=== PATIENT | female | born 1980 | race Native Hawaiian/Other Pacific Islander ===

== ENCOUNTER 2018-06-03 10:24 | Emergency (ER) | payer OTHER ==
--- NOTE | 2018-06-03 11:22 | XR ---
EXAMINATION TYPE: XR foot complete LT DATE OF EXAM: 06/03/2018 COMPARISON: None HISTORY: Pain left foot injury TECHNIQUE: Left foot is examined in 3 views FINDINGS: No acute fractures are evident. Soft tissues appear normal. Follow-up exam can be performed 7-10 days from acute trauma for continued pain. IMPRESSION: 1. No acute osseous abnormality left foot.
--- NOTE | 2018-06-03 11:32 | ED ---
General Adult HPI - General Chief complaint: Extremity Problem,Nontraumatic Stated complaint: foot swelling/sore Time Seen by Provider: 06/03/18 10:41 Source: patient, RN notes reviewed, old records reviewed Mode of arrival: ambulatory Limitations: no limitations - History of Present Illness Initial comments: 38-year-old female with no chronic medical problems presents with one-week history of left foot pain. Pain is on the top of her foot between her first and second digit. Denies injury. Denies fever or chills. She states she has noticed some soft tissue swelling in the area. No reported injury or overuse. Denies ankle pain. Denies calf pain or swelling. No other complaints, no chest pain, dyspnea, abdominal pain. - Related Data Home Medications Medication Instructions Recorded Confirmed No Known Home Medications 06/03/18 06/03/18 Allergies Allergy/AdvReac Type Severity Reaction Status Date / Time No Known Allergies Allergy Verified 06/03/18 10:54 Review of Systems ROS Statement: Those systems with pertinent positive or pertinent negative responses have been documented in the HPI. ROS Other: All systems not noted in ROS Statement are negative. Past Medical History Past Medical History: No Reported History Additional Past Medical History / Comment(s): headaches History of Any Multi-Drug Resistant Organisms: None Reported Past Surgical History: No Surgical Hx Reported Past Psychological History: Anxiety, Bipolar, Depression Smoking Status: Current every day smoker Past Alcohol Use History: Occasional Past Drug Use History: None Reported General Exam Limitations: no limitations General appearance: alert, in no apparent distress Head exam: Present: atraumatic, normocephalic Eye exam: Present: normal appearance, PERRL, EOMI ENT exam: Present: normal exam, normal oropharynx Neck exam: Present: normal inspection. Absent: tenderness, meningismus Respiratory exam: Present: normal lung sounds bilaterally, respiratory distress Cardiovascular Exam: Present: regular rate, normal rhythm GI/Abdominal exam: Present: soft. Absent: distended, tenderness Extremities exam: Present: other (Left foot, 2+ DP and PT pulses. Normal cap refill. Normal color. Mild soft tissue swelling between the first and second metatarsals. No ecchymosis. No erythema. No induration. There is some tenderness associated with this area) Course Vital Signs 06/03/18 10:36 Temperature 98.4 F Pulse Rate 107 H Respiratory 20 Rate Blood Pressure 122/68 O2 Sat by Pulse 99 Oximetry Medical Decision Making - Medical Decision Making 38-year-old female with left hip pain. Mild swelling on exam. No concern for infection at this time. Patient does receive x-ray of the emergency department which is negative for any bony abnormality. She will continue to elevate and ice the foot. Take Motrin for pain. She will be given orthopedic follow-up as needed. Disposition Clinical Impression: Foot pain, left Disposition: HOME SELF-CARE Condition: Fair Instructions: Foot Sprain (ED) Is patient prescribed a controlled substance at d/c from ED?: No Referrals: None,Stated [Primary Care Provider] - 1-2 days Aba Mckeon MD [STAFF PHYSICIAN] - 1-2 days Time of Disposition: 11:32
[2018-06-03 12:03] VITALS: BP 137/86; PULSE 90; RESP 18; TEMP 98.9
== END 2018-06-03 12:03 | disposition home or self-care (01) ==
LOC: EC 10:24
DX: M79.672 Pain in left foot (principal); M79.89 Other specified soft tissue disorders; F17.200 Nicotine dependence, unspecified, uncomplicated
CPT/HCPCS: 99284

== ENCOUNTER → 2018-09-27 | Outpatient (CLI) | payer OTHER ==
--- NOTE | 2018-09-27 13:53 | MR ---
EXAMINATION TYPE: MR brain wo con DATE OF EXAM: 09/27/2018 COMPARISON: 10/08/2015 MR brain HISTORY: Chronic headache / Vision changes TECHNIQUE: Multiplanar, multisequence images of the brain and brainstem is performed without intravenous contras t. FINDINGS: Diffusion weighted images demonstrate no evidence of a recent infarct or other diffusion ab normality. There is no extra-axial fluid collection. The ventricular system and cisternal spaces are normal in size and appearance. The brain volume is age appropriate. There are 5 foci of subcortical T2/FLAIR hyperintensity measuring up to 3 mm in the right occipital lobe and bilateral temporal lobe s. There is decreased intensity of the cervical spine vertebral bodies are most commonly relates to a nemia. Correlate with CBC. Midline structures demonstrate normal morphology. The craniocervical junction appears within normal limits. The dural venous sinuses appear patent. The visualized sinuses demonstrate a left mucosal re tention cyst or polyp within the maxillary sinus measuring 1.6 cm and partial opacification of the le ft sphenoid sinus, both findings unchanged from the prior. IMPRESSION: 1. 5 new foci of subcortical nonspecific white matter change measuring up to 3 mm. Sequela of migrain es or early microangiopathy are favored given distribution. Demyelinating disease is considered much less likely given the distribution. Orbits appear symmetric with no convincing evidence of increased intracranial pressure in this patient with visual changes. 2. Persistent 1.6 cm left maxillary sinus mucosal retention cyst or polyp. 3. Decreased intensity of the cervical spine bone marrow that could relate to anemia or other etiolog ies. Correlate with CBC.
== END | disposition home or self-care (01) ==
LOC: RADMRIMAIN 11:02
PROVIDERS: ATTEND Family Medicine
DX: R90.82 White matter disease, unspecified (principal)
CPT/HCPCS: 70551

== ENCOUNTER → 2019-06-28 | Outpatient (CLI) | payer BC ==
[2019-06-28 12:13] VITALS: BP 115/64; PULSE 79; RESP 16
--- NOTE | 2019-06-29 10:52 | P.PAINCN ---
History of Present Illness - Reason for Consult Consult date: 06/28/19 - History of Present Illness This is a 39 years old female with history of chronic and severe headaches started several years ago, and she reported that the intensity of the headaches increased over the last few months, and also patient reported that she had increased the frequency and increase the intensity of the headache, the headache intensity interfering with her quality of life she tried medication management and it failed, and she was evaluated by neurologist Dr. Johnson and she recommended occipital nerve block, patient reported that the headaches start from the base of the skull and radiated to the top of the head , she has some numbness and tingling in her left wrist only, she denies any motor or sensory deficit she denies any fever or night sweats and there is no change in the bowel movement or urination Past Medical History Past Medical History: No Reported History Additional Past Medical History / Comment(s): headaches History of Any Multi-Drug Resistant Organisms: None Reported Past Surgical History: No Surgical Hx Reported Additional Past Surgical History / Comment(s): [place] teeth extraction 6 years ago Past Anesthesia/Blood Transfusion Reactions: No Reported Reaction Past Psychological History: Anxiety, Bipolar, Depression Smoking Status: Former smoker Past Alcohol Use History: Occasional Past Drug Use History: None Reported, Marijuana Additional Drug Use History / Comment(s): occational marijuana use - Past Family History Mother Family Medical History: Diabetes Mellitus, Hypertension Medications and Allergies Home Medications Medication Instructions Recorded Confirmed Type Ibuprofen [Motrin] 2 tab PO BID PRN 06/28/19 06/28/19 History Allergies Allergy/AdvReac Type Severity Reaction Status Date / Time No Known Allergies Allergy Verified 06/28/19 11:57 Physical Exam Vitals: Vital Signs Pulse Resp BP Pulse Ox 06/28/19 12:00 79 16 115/64 97 REVIEW OF ORGAN SYSTEMS: CONSTITUTIONAL: No fevers or chills. No recent weight loss. EYES: denies troubles with vision. HEENT: No difficulties with hearing. No nosebleeds. No difficulty swallowing. RESPIRATORY: Denies any troubles with breathing or dyspnea on exertion. CARDIOVASCULAR: Denies any chest pain, palpitations, or recent heart attacks. GASTROINTESTINAL: Denies fatty food intolerance. Has change in bowel habits and gas bloat. GENITOURINARY: Denies any blood in urine. Has increased urinary frequency. NEUROLOGICAL: + numbness and tingling left hand. No seizure disorders or headaches. MUSCULOSKELETAL: Has back pain. SKIN:no skin cancer. No rash. PSYCHIATRIC: Denies current depression or suicidal thoughts. ENDOCRINE: Denies current thyroid disorders. Denies any blood sugar glucose intolerance. HEME/LYMPHATIC: Denies any lumps and bumps around the neck. History of deep venous thrombosis. ALLERGY/IMMUNOLOGY: No immunoglobulin therapy. No immune deficiencies. BREAST: Denies current breast lumps, pain or nipple discharge. Physical Examinations : Constitutiona : Cooperative , not in acute distress . HEENT : nech : supple , no Lymphadenopathy , normal thyroid size . : eyes no ptosis , no icterus, no photophobia . : ENT normal of hearing , normal oropharynx , no Thrush . Respiratory : Chest clear to auscultations Bilaterally , no wheezing , no Rhonchi . Cardiovascula : regular rate and rhythem , S1 , S2 , no S3 , no S4. Gastrointestina : abdomen soft no tenderness , bowel sounds , no organomegally . Genitourinary : Defferred . neurologic : Cranial nerve II to XII intact , no focal neurological deffecit . psychatric : alert , oriented X 3 , appropriate affect , intact judgment and insight . Lymphatic : no Lymphadenopathy . musculoskeltal : Cervical Spine motor stregnth in the deltoid and biceps, normal right side , normal Left side motor stregnth biceps and the wrist extensors normal right side ,normal left side . motor stregnth in the triceps muscle . normal Right side , normal Left side deep tendon reflexes= normal at the biceps , normal at Brachioradialis , normal at triceps. cervical facet loading test: Positive Bilaterally Tenderness over the occipital nerves bilaterally Lumber spine moter stegnth lower extremities ,thigh and legs 5/5 Right side , 5/5 Left side Results Comments: MRI of the brain reviewed Assessment and Plan Plan: Assessment and plan= occipital neuralgia. Cervical spondylosis Patient with a good candidate bilateral occipital nerve block x2 , if patient continued to have headaches after the occipital nerve block then we will order a CT/MRI of the cervical spine, to evaluate if there is any cervicogenic etiology causing a headache Time with Patient: Greater than 30 PQRS Measure Charge Sheet Measure #130: Documentation of Current Meds in Medical Chart: Patient's medications documented in chart Measure #226: Tobacco Use: Screen & Cessation Intervention: Pt not a tobacco user Measure #111: Pneumonia Vaccination: Pneumococcal vaccine NOT administered or previously given Measure #47: Advance Care Plan: Advance care planning discussed & documented, pt chose/unable to give Measure #412: Opioid Treatment Agreement: No documentation of signed opioid treatment agreement Measure #408: Opioid Therapy Follow-up Evaluation: Patient had NO f/u eval minimum every 3 months during opioid therapy Measure #317: Preventitive Care & Scrn High Bld Press & F/U: Normal blood pressure, f/u not required Measure #128: Body Mass Index (BMI) Screening & Follow-up: BMI documented ABOVE normal parameters - f/u documented Measure #131: Pain Assessment & Follow-up: Pain positive & plan documented, Follow-up scheduled Measure #431: Unhealthy Alcohol Use Preventative Care & Scrn: Patient not identified as an unhealthy alcohol user PQRS Narrative: Smoking Status Former smoker Blood Pressure 115/64 Pain Intensity [Head] 5 Scale Used Numeric (1 - 10) Hx Alcohol Use (MH) Yes: occ Home Medications: Ambulatory Orders Ibuprofen [Motrin] 2 tab PO BID PRN 06/28/19
== END | disposition home or self-care (01) ==
LOC: PNWHC3 11:40
PROVIDERS: ATTEND Specialist
DX: M47.812 Spondylosis without myelopathy or radiculopathy, cervical region (principal); M54.81 Occipital neuralgia; Z87.891 Personal history of nicotine dependence; Z79.1 Long term (current) use of non-steroidal anti-inflammatories (NSAID)
CPT/HCPCS: 99211

== ENCOUNTER → 2020-10-08 | Outpatient (CLI) | payer BC, OTHER ==
--- NOTE | 2020-10-08 16:18 | US ---
EXAMINATION TYPE: US pelvic complete DATE OF EXAM: 10/08/2020 COMPARISON: NONE CLINICAL HISTORY: N83.202 OVARIAN CYST. Left pelvic pain TECHNIQUE: . Transabdominal sonographic images of the pelvis were acquired. Date of LMP: 3 weeks ago EXAM MEASUREMENTS: Uterus: 8.4 x 3.8 x 5.5 cm Endometrial Stripe: 1.3 cm Right Ovary: 2.4 x 2.0 x 2.3 cm Left Ovary: 3.2 x 2.5 x 2.5 cm 1. Uterus: anteverted, heterogeneous 2. Endometrium: appears wnl 3. Right Ovary: multiple follicles. One of the largest is 1.3 cm follicle. 4. Left Ovary: 2.2 x 1.7 x 1.8cm mildly complex cystic structure. This may represent an evolving hem orrhagic cyst. A follow-up sonographic study of the pelvis could be obtained in 6 weeks. 5. Bilateral Adnexa: wnl 6. Posterior cul-de-sac: wnl IMPRESSION: 1. 2.2 cm mildly complex left ovarian cystic structure suggestive of an evolving hemorrhagic cyst but indeterminate. A follow-up sonographic study could be obtained in 6 weeks. 2. Right ovarian follicles. 3. The endometrial stripe is within normal limits for menstruating female.
--- NOTE | 2020-10-09 11:38 | MM ---
Reason for exam: clinical finding. Baseline mammogram. Physical Findings: Nurse did not find any significant physical abnormalities on exam. MG Diagnostic Mammo w CAD LAURI Bilateral CC and MLO view(s) were taken. The breast tissue is extremely dense which could obscure a lesion on mammography. These results were verbally communicated with the patient and result sheet given to the patient on 10/08/20. ASSESSMENT: Benign, BI-RAD 2 RECOMMENDATION: Routine screening mammogram of both breasts in 1 year. Manage on a clinical basis with regard to bilateral clear nipple discharge.
== END | disposition home or self-care (01) ==
LOC: RADMAMWWP 13:04
PROVIDERS: ATTEND Family Medicine
DX: N83.202 Unspecified ovarian cyst, left side (principal); N64.4 Mastodynia
CPT/HCPCS: 76856; 77066

== ENCOUNTER 2021-08-01 07:04 | Emergency (ER) | payer BC ==
--- NOTE | 2021-08-01 07:55 | ED ---
General Adult HPI - General Chief complaint: Upper Respiratory Infection Stated complaint: Weakness, SOB Time Seen by Provider: 08/01/21 07:45 Source: patient, RN notes reviewed, old records reviewed Mode of arrival: ambulatory Limitations: no limitations - History of Present Illness Initial comments: 41-year-old female, well-appearing, presents to the emergency room with complaints of cough, fatigue and body aches worsening over past couple days. She states that she took Mucinex DayQuil today with some relief. She continues to have a cough that is nonproductive. She is concerned for viral illness. She has not been vaccinated against coronavirus. -: days(s) (2) Radiation: non-radiation Severity scale (1-10): 3 Quality: aching Associated Symptoms: cough, fever/chills, malaise, shortness of breath Treatments Prior to Arrival: other (mucinex daytime) - Related Data Previous Rx's Medication Instructions Recorded Albuterol Sulfate [Albuterol 2 puff PO Q6H #8.5 gm 08/01/21 Sulfate Hfa] Allergies Allergy/AdvReac Type Severity Reaction Status Date / Time No Known Allergies Allergy Verified 08/01/21 08:17 Review of Systems ROS Statement: Those systems with pertinent positive or pertinent negative responses have been documented in the HPI. ROS Other: All systems not noted in ROS Statement are negative. Past Medical History Past Medical History: No Reported History Additional Past Medical History / Comment(s): headaches History of Any Multi-Drug Resistant Organisms: None Reported, MRSA Date of last positivie culture/infection: 01/2021 MDRO Source:: chin Past Surgical History: No Surgical Hx Reported Additional Past Surgical History / Comment(s): [place] teeth extraction 6 years ago Past Anesthesia/Blood Transfusion Reactions: No Reported Reaction Past Psychological History: Anxiety, Bipolar, Depression Smoking Status: Never smoker Past Alcohol Use History: Occasional Past Drug Use History: None Reported, Marijuana - Past Family History Mother Family Medical History: Diabetes Mellitus, Hypertension General Exam Limitations: no limitations General appearance: alert, in no apparent distress Head exam: Present: atraumatic, normal inspection Eye exam: Present: normal appearance ENT exam: Present: normal exam, normal oropharynx, mucous membranes moist Expanded Mouth exam: Present: tongue normal, tongue elevation. Absent: drooling, trismus, muffled voice Throat exam: normal inspection. negative: tonsillar erythema, tonsillomegaly, tonsillar exudate, R peritonsillar mass, L peritonsillar mass Neck exam: Present: normal inspection, full ROM. Absent: tenderness, meningismus, lymphadenopathy, thyromegaly Respiratory exam: Present: normal lung sounds bilaterally. Absent: respiratory distress, accessory muscle use Cardiovascular Exam: Present: regular rate, normal rhythm, normal heart sounds GI/Abdominal exam: Present: soft. Absent: distended, tenderness Extremities exam: Absent: pedal edema Back exam: Present: normal inspection. Absent: tenderness, CVA tenderness (R), CVA tenderness (L), rash noted Neurological exam: Present: alert, oriented X3 Psychiatric exam: Present: normal affect, normal mood Skin exam: Present: warm, dry, intact, normal color. Absent: cyanosis, diaphoretic, petechiae, pallor Course Vital Signs 08/01/21 08/01/21 08/01/21 07:24 07:50 09:50 Temperature 98.9 F 98.7 F Pulse Rate 96 84 Respiratory 18 22 20 Rate Blood Pressure 115/65 124/82 O2 Sat by Pulse 98 97 Oximetry 08/01/21 10:35 Temperature 98.6 F Pulse Rate 86 Respiratory 20 Rate Blood Pressure 112/77 O2 Sat by Pulse 98 Oximetry EKG Findings - EKG Results: EKG: sinus rhythm (Ventricular rate of 81, NH interval 0.158, QRS 0.96, QTC 0.412) Medical Decision Making - Medical Decision Making 41-year-old female presents with cough congestion, fatigue and body aches for the past 2 days. She was offered Motrin and declined stating that she took Mucinex daytime and is getting relief from her body aches. Vital signs are stable, oxygen saturation 98% on room air. Patient is afebrile in the emergency room. Chest x-ray shows no infiltrates. EKG shows sinus rhythm. She is positive for coronavirus. She has not been vaccinated and was willing to receive monoclonal antibody infusion. She tolerated the infusion with no difficulties. Vital signs are stable patient's oxygen saturation is 97% on room air. She was prescribed an albuterol inhaler for her cough. She was directed to self quarantine for 5 days from symptom onset or until symptoms have resolved. Increase her fluid intake. Take vitamin C, vitamin D and zinc. Follow-up with the primary care doctor next week. Return to the emergency room if any new or concerning symptoms. Case discussed with Dr. Ge. - Lab Data Lab Results 08/01/21 Range/Units 07:31 Coronavirus (PCR) Detected A (Not Detectd) Disposition Clinical Impression: COVID-19 Disposition: HOME SELF-CARE Condition: Good Instructions (If sedation given, give patient instructions): COVID-19 (Coronavirus Disease 2019) (ED) Additional Instructions: Self quarantine for 5 days from symptom onset or until symptoms have resolved. Increase your fluid intake. Take vitamin C, vitamin D and zinc. Use albuterol inhaler 2 puffs every 4 hours as needed for cough or shortness of breath. Follow-up with the primary care doctor next week. Return to the emergency room if any new or concerning symptoms Prescriptions: Albuterol Sulfate [Albuterol Sulfate Hfa] 2 puff PO Q6H #8.5 gm Is patient prescribed a controlled substance at d/c from ED?: No Referrals: Geraldine Hogue MD [Primary Care Provider] - 1-2 days Time of Disposition: 10:30
--- NOTE | 2021-08-01 08:18 | XR ---
EXAMINATION TYPE: XR chest 2V DATE OF EXAM: 08/01/2021 COMPARISON: None HISTORY: 41-year-old female with cough and congestion TECHNIQUE: PA and lateral views FINDINGS: The cardiomediastinal silhouette, aorta, and pulmonary vasculature are within normal limits. Some str leatha atelectasis in the lower lungs. Otherwise, lungs and pleural spaces are clear. IMPRESSION: No acute cardiopulmonary process.
[2021-08-01] MEDS ORDERED: SODIUM CHLORIDE 0.9% 50 ML IVPB ONE (09:30)
[2021-08-01] MEDS ORDERED: SOTROVIMAB (EUA) 500 MG in SODIUM CHLORIDE 0.9% 100 ML IVPB ONE (09:30)
[2021-08-01 09:52] VITALS: RESP 20
[2021-08-01] MEDS ORDERED: ALBUTEROL HFA INHALER INHALATION STA (09:53)
[2021-08-01 10:36] VITALS: BP 112/77; PULSE 86; TEMP 98.6
== END 2021-08-01 11:21 | disposition home or self-care (01) ==
LOC: EC 07:04
DX: U07.1 COVID-19 (principal)
CPT/HCPCS: 94640; 93005; 87635; 71046; 99285; Q0247

== ENCOUNTER 2021-09-14 08:51 | Emergency (ER) | payer BC ==
[2021-09-14 08:57] VITALS: RESP 18
[2021-09-14] MEDS ORDERED: VANCOMYCIN IV PER PHARMACY 1 EACH MISC MISCELLANE PRN (09:12)
[2021-09-14] MEDS ORDERED: KETOROLAC 15 MG/ML 1 ML VIAL IVP STA (09:12)
[2021-09-14] MEDS ORDERED: VANCOMYCIN 1,500 MG in SODIUM CHLORIDE 0.9% 250 ML IVPB STA (09:16)
[2021-09-14 09:58] LABS: Basophils % (A) 0 %; Eosinophils % (A) 1 %; HCT 42.1 % (34.0-46.0); Lymphocytes # (A) 0.7 k/uL (1.0-4.8); Lymphocytes % (A) 13 %; MCH 31.7 pg (25.0-35.0); MCHC 33.4 g/dL (31.0-37.0); MCV 95.1 fL (80.0-100.0); Mean Platelet Volume 7.8; Monocytes # (A) 0.2 k/uL (0-1.0); Monocytes % (A) 4 %; Neutrophils # (A) 4.4 k/uL (1.3-7.7); Neutrophils % (A) 82 %; Platelet Count 187 k/uL (150-450); RBC 4.42 m/uL (3.80-5.40); RDW 12.5 % (11.5-15.5); WBC 5.4 k/uL (3.8-10.6)
[2021-09-14 10:11] LABS: ALT 18 U/L (4-34); AST 18 U/L (14-36); African American GFR (CKD) >90 (>60 ml/min/1.73 sqM); Albumin 4.2 g/dL (3.5-5.0); Alkaline Phosphatase 48 U/L (38-126); Anion Gap 7 mmol/L; Blood Urea Nitrogen 13 mg/dL (7-17); Calcium 9.1 mg/dL (8.4-10.2); Carbon Dioxide 26 mmol/L (22-30); Chloride 107 mmol/L (98-107); Glucose 112 mg/dL (74-99); Magnesium 1.9 mg/dL (1.6-2.3); Non-African American GFR(CKD) 90 (>60 ml/min/1.73 sqM); Potassium 3.9 mmol/L (3.5-5.1); Sodium 140 mmol/L (137-145); Total Bilirubin 0.9 mg/dL (0.2-1.3); Total Protein 7.1 g/dL (6.3-8.2)
--- NOTE | 2021-09-14 10:14 | XR ---
EXAMINATION TYPE: XR chest 2V DATE OF EXAM: 09/14/2021 COMPARISON: 08/01/2021 INDICATION: Chest pain swelling TECHNIQUE: Frontal and lateral views of the chest are obtained. FINDINGS: The heart size is normal. The pulmonary vasculature is normal. The lungs are clear. IMPRESSION: 1. No acute pulmonary process.
[2021-09-14 10:16] LABS: INR 0.9 (<1.2); Prothrombin Time 10.3 sec (9.0-12.0)
[2021-09-14] MEDS ORDERED: ACET/COD 300 MG/30 MG STARTER PACK 6 TAB BTL PO STA (10:34)
--- NOTE | 2021-09-14 10:34 | ED ---
Skin/Abscess/FB HPI - General Chief complaint: Skin/Abscess/Foreign Body Stated complaint: poss spider bite to face, SOB Time Seen by Provider: 09/14/21 09:00 Source: patient, RN notes reviewed Mode of arrival: ambulatory Limitations: no limitations - History of Present Illness Initial comments: 41-year-old female presents emergency department for swelling of her face. Patient states this started over the last couple days she touches a spider. She states she has similar issue this a few months ago in which she was diagnosed with MRSA infection. Patient states today she feels more swollen states it hurts all over the breath. Patient does not take any medications prior arrival. Patient has no known ALLERGIES denies typically swelling patient offers no complaints. - Related Data Previous Rx's Medication Instructions Recorded Albuterol Sulfate [Albuterol 2 puff PO Q6H #8.5 gm 08/01/21 Sulfate Hfa] Cephalexin [Keflex] 500 mg PO Q6HR #40 cap 09/14/21 Sulfamethox-Tmp 800-160Mg [Bactrim 1 each PO Q12HR #20 tab 09/14/21 Ds] Allergies Allergy/AdvReac Type Severity Reaction Status Date / Time No Known Allergies Allergy Verified 09/14/21 08:56 Review of Systems ROS Statement: Those systems with pertinent positive or pertinent negative responses have been documented in the HPI. ROS Other: All systems not noted in ROS Statement are negative. Past Medical History Past Medical History: No Reported History Additional Past Medical History / Comment(s): headaches History of Any Multi-Drug Resistant Organisms: None Reported, MRSA Date of last positivie culture/infection: 01/2021 MDRO Source:: chin Past Surgical History: No Surgical Hx Reported Additional Past Surgical History / Comment(s): [place] teeth extraction 6 years ago Past Anesthesia/Blood Transfusion Reactions: No Reported Reaction Past Psychological History: Anxiety, Bipolar, Depression Smoking Status: Never smoker Past Alcohol Use History: Occasional Past Drug Use History: None Reported, Marijuana - Past Family History Mother Family Medical History: Diabetes Mellitus, Hypertension General Exam Limitations: no limitations General appearance: alert, in no apparent distress Head exam: Present: atraumatic, normocephalic, normal inspection Eye exam: Present: normal appearance, PERRL, EOMI. Absent: scleral icterus, conjunctival injection, periorbital swelling ENT exam: Present: normal exam, normal oropharynx, mucous membranes moist, TM's normal bilaterally, normal external ear exam, other (There is swelling, erythema, tenderness of palpation over the chin, mandibular region with mild swelling extending outward) Neck exam: Present: normal inspection. Absent: tenderness, meningismus, lymphadenopathy Respiratory exam: Present: normal lung sounds bilaterally, chest wall tenderness. Absent: respiratory distress, wheezes, rales, rhonchi, stridor Cardiovascular Exam: Present: regular rate, normal rhythm, normal heart sounds. Absent: systolic murmur, diastolic murmur, rubs, gallop, clicks Course Vital Signs 09/14/21 08:52 Temperature 97.8 F Pulse Rate 86 Respiratory 18 Rate Blood Pressure 141/84 O2 Sat by Pulse 99 Oximetry Medical Decision Making - Medical Decision Making Patient has a facial abscess, facial infection was started on Keflex and Bactrim. Patient complains some chest wall pain work up was negative no acute findings. Patient will be discharged with close follow-up return parameters were discussed. - Lab Data Result diagrams: 09/14/21 09:46 09/14/21 09:46 Lab Results 09/14/21 09/14/21 09/14/21 Range/Units 09:46 09:46 09:46 WBC 5.4 (3.8-10.6) k/uL RBC 4.42 (3.80-5.40) m/uL Hgb 14.0 (11.4-16.0) gm/dL Hct 42.1 (34.0-46.0) % MCV 95.1 (80.0-100.0) fL MCH 31.7 (25.0-35.0) pg MCHC 33.4 (31.0-37.0) g/dL RDW 12.5 (11.5-15.5) % Plt Count 187 (150-450) k/uL MPV 7.8 Neutrophils % 82 % Lymphocytes % 13 % Monocytes % 4 % Eosinophils % 1 % Basophils % 0 % Neutrophils # 4.4 (1.3-7.7) k/uL Lymphocytes # 0.7 L (1.0-4.8) k/uL Monocytes # 0.2 (0-1.0) k/uL Eosinophils # 0.0 (0-0.7) k/uL Basophils # 0.0 (0-0.2) k/uL PT 10.3 (9.0-12.0) sec INR 0.9 (<1.2) APTT 23.0 (22.0-30.0) sec D-Dimer 0.29 (<0.60) mg/L FEU Sodium 140 (137-145) mmol/L Potassium 3.9 (3.5-5.1) mmol/L Chloride 107 (98-107) mmol/L Carbon Dioxide 26 (22-30) mmol/L Anion Gap 7 mmol/L BUN 13 (7-17) mg/dL Creatinine 0.82 (0.52-1.04) mg/dL Est GFR (CKD-EPI)AfAm >90 (>60 ml/min/1.73 sqM) Est GFR (CKD-EPI)NonAf 90 (>60 ml/min/1.73 sqM) Glucose 112 H (74-99) mg/dL Plasma Lactic Acid Gmue (0.7-2.0) mmol/L Calcium 9.1 (8.4-10.2) mg/dL Magnesium 1.9 (1.6-2.3) mg/dL Total Bilirubin 0.9 (0.2-1.3) mg/dL AST 18 (14-36) U/L ALT 18 (4-34) U/L Alkaline Phosphatase 48 (38-126) U/L Troponin I (0.000-0.034) ng/mL Total Protein 7.1 (6.3-8.2) g/dL Albumin 4.2 (3.5-5.0) g/dL 09/14/21 09/14/21 Range/Units 09:46 10:00 WBC (3.8-10.6) k/uL RBC (3.80-5.40) m/uL Hgb (11.4-16.0) gm/dL Hct (34.0-46.0) % MCV (80.0-100.0) fL MCH (25.0-35.0) pg MCHC (31.0-37.0) g/dL RDW (11.5-15.5) % Plt Count (150-450) k/uL MPV Neutrophils % % Lymphocytes % % Monocytes % % Eosinophils % % Basophils % % Neutrophils # (1.3-7.7) k/uL Lymphocytes # (1.0-4.8) k/uL Monocytes # (0-1.0) k/uL Eosinophils # (0-0.7) k/uL Basophils # (0-0.2) k/uL PT (9.0-12.0) sec INR (<1.2) APTT (22.0-30.0) sec D-Dimer (<0.60) mg/L FEU Sodium (137-145) mmol/L Potassium (3.5-5.1) mmol/L Chloride (98-107) mmol/L Carbon Dioxide (22-30) mmol/L Anion Gap mmol/L BUN (7-17) mg/dL Creatinine (0.52-1.04) mg/dL Est GFR (CKD-EPI)AfAm (>60 ml/min/1.73 sqM) Est GFR (CKD-EPI)NonAf (>60 ml/min/1.73 sqM) Glucose (74-99) mg/dL Plasma Lactic Acid Gume 1.1 (0.7-2.0) mmol/L Calcium (8.4-10.2) mg/dL Magnesium (1.6-2.3) mg/dL Total Bilirubin (0.2-1.3) mg/dL AST (14-36) U/L ALT (4-34) U/L Alkaline Phosphatase (38-126) U/L Troponin I <0.012 (0.000-0.034) ng/mL Total Protein (6.3-8.2) g/dL Albumin (3.5-5.0) g/dL Disposition Clinical Impression: Facial abscess, Chest wall pain Disposition: HOME SELF-CARE Condition: Stable Instructions (If sedation given, give patient instructions): Abscess (ED) Additional Instructions: Please return to the Emergency Department if symptoms worsen or any other concerns. Prescriptions: Sulfamethox-Tmp 800-160Mg [Bactrim Ds] 1 each PO Q12HR #20 tab Cephalexin [Keflex] 500 mg PO Q6HR #40 cap Is patient prescribed a controlled substance at d/c from ED?: No Referrals: Geraldine Hogue MD [Primary Care Provider] - 1-2 days Time of Disposition: 10:34
[2021-09-14] MEDS ORDERED: ACETAMINOPHEN TAB 500 MG TAB PO STA (12:15)
[2021-09-14 12:16] VITALS: BP 114/81; PULSE 85; TEMP 102.2
== END 2021-09-14 12:36 | disposition home or self-care (01) ==
LOC: EC 08:51
DX: L02.01 Cutaneous abscess of face (principal); R07.89 Other chest pain
CPT/HCPCS: 36415; 93005; 85379; 80053; 83605; 83735; 84484; 85025; 85610; 85730; 87040; 87077; 87186; 71046; 99285; 96365; 96366; 96375; J3370; J1885

== ENCOUNTER → 2022-04-13 | Outpatient (CLI) | payer BC ==
--- NOTE | 2022-04-13 07:20 | MR ---
EXAMINATION TYPE: MR brain/cspine wo DATE OF EXAM: 04/13/2022 COMPARISON: CT brain May 02, 2014 HISTORY: Cervicalgia, Headache unspecified, Numbness TECHNIQUE: Multiplanar, multisequence imaging of the brain and brainstem and cervical spine are all p erformed without IV contrast. FINDINGS: Brain: Diffusion weighted images demonstrate no evidence of a recent infarct or other diffusion abnormality. There is no extraaxial fluid collection or significant white matter signal abnormality. The ventricu lar system and cisternal spaces are normal in size and appearance. The brain volume is age appropria te. T2*weighted images show no suspicious intraparenchymal blood product. Midline structures demonstrate normal morphology. The craniocervical junction appears within normal limits. Normal vascular flow voids are present. There is 1.8 cm mucous retention cyst or polyp in the anterior inferior left maxillary sinus otherwise paranasal sinuses are clear. Globes are intact bila terally. IMPRESSION: Chronic left maxillary sinus disease otherwise unremarkable study. C-SPINE: FINDINGS: Sagittal images of the cervical spine show the craniocervical junction to appear within nor mal limits. The cervical and upper thoracic spinal cord is normal in caliber and signal. Straighteni ng of cervical spine is seen with slight grade 1 anterolisthesis C2 on C3, C3 on C4, and C4 on C5 and grade 1 retrolisthesis C6 on C7 along with grade 1 anterolisthesis C7 on T1. Mild to moderate disc s pace narrowing C7-T1 level otherwise The vertebral body and intravertebral disk heights are normal. The bone marrow signal intensity is within normal limits. Axial images show C2-C3 through C4-C5 levels to appear within normal limits. Axial images at C5-C6 level shows posterior lobulated disc protrusion effacing anterior thecal sac ne anibal up to ventral surface of spinal cord on axial image 22 and sagittal image 8 and causing mild lef t-sided neural foraminal narrowing. Axial images at C6-C7 levels show lobulated posterior disc protrusion minimally effacing anterior the saurabh sac and causing mild left-sided neural foraminal narrowing. Axial images at C7-T1 level appear within normal limits. 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
== END | disposition home or self-care (01) ==
LOC: RADMRIMAIN 05:59
PROVIDERS: ATTEND Family Medicine
DX: M43.12 Spondylolisthesis, cervical region (principal); J32.0 Chronic maxillary sinusitis; M47.812 Spondylosis without myelopathy or radiculopathy, cervical region; M54.2 Cervicalgia; R51.9 Headache, unspecified
CPT/HCPCS: 70551; 72141

== ENCOUNTER → 2022-04-15 | Outpatient (CLI) | payer BC ==
--- NOTE | 2022-04-15 15:34 | US ---
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 possible enlarged gland GLAND SIZE: Right Lobe: 3.9 x 1.9 x 1.6 cm Overall Parenchyma: homogenous Left Lobe: 3.5 x 1.7 x 1.4 cm Overall Parenchyma: homogeneous Isthmus Thickness: cm NODULES RIGHT: # of nodules measured on right: 0 LEFT: # of nodules measured on left: 0 ISTHMUS: # of nodules measured in the isthmus: 0 Bilateral neck scanned, no evidence of lymphadenopathy. IMPRESSION: No discrete abnormality seen.
== END | disposition home or self-care (01) ==
LOC: RADUSWWP 12:29
PROVIDERS: ATTEND Family Medicine
DX: E01.0 Iodine-deficiency related diffuse (endemic) goiter (principal)
CPT/HCPCS: 76536